=== PATIENT | female | born 1975 ===

== ENCOUNTER 2018-01-13 17:49 | Emergency (ER) | payer MEDICAID ==
[2018-01-13 17:55] VITALS: BP 112/74; PULSE 67; RESP 16; TEMP 98.6; O2SAT 100
--- NOTE | 2018-01-13 18:49 | ED PDOC ---
HPI: Female Pain Time Seen by Provider: 01/13/18 18:07 Chief Complaint (Nursing): Female Genitourinary Chief Complaint (Provider): Bleeding in History Per: Patient History/Exam Limitations: no limitations Onset/Duration Of Symptoms: Days Current Symptoms Are (Timing): Still Present Additional Complaint(s): 42 yo presents at 10 weeks gestation with vaginal bleeding. LMP november 08, 2017. Pt states 3 days ago she had some spotting, ribbon cleaner than menses. PT states it stopped and she had some bleeding today as well. Pt denies pain. Pt states she has been seen by her OB but does not remember then name. PT states she is taking vitamins. PT states previous 2 pregnancies were without complications. Abnormal Vaginal Bleeding: Yes Past Medical History Reviewed: Historical Data, Nursing Documentation, Vital Signs Vital Signs: Last Vital Signs Temp 98.6 F 01/13/18 17:53 Pulse 67 01/13/18 17:53 Resp 16 01/13/18 17:53 BP 112/74 01/13/18 17:53 Pulse Ox 100 01/13/18 17:53 - Medical History PMH: No Chronic Diseases Denies: Chronic Kidney Disease - Surgical History Surgical History: No Surg Hx - Family History Family History: States: No Known Family Hx - Living Arrangements Living Arrangements: With Family - Social History Current smoker - smoking cessation education provided: No - Allergies Allergies/Adverse Reactions: Allergies Allergy/AdvReac Type Severity Reaction Status Date / Time No Known Allergies Allergy Verified 01/13/18 17:53 Review of Systems ROS Statement: Except As Marked, All Systems Reviewed And Found Negative Constitutional: Negative for: Fever, Chills Respiratory: Negative for: Cough Gastrointestinal: Negative for: Nausea, Vomiting, Abdominal Pain Genitourinary Female: Positive for: Vaginal Bleeding Physical Exam - Reviewed Nursing Documentation Reviewed: Yes Vital Signs Reviewed: Yes - Physical Exam Appears: Positive for: Well, Non-toxic, No Acute Distress Head Exam: Positive for: ATRAUMATIC, NORMAL INSPECTION, NORMOCEPHALIC Skin: Positive for: Normal Color, Warm, DRY Eye Exam: Positive for: Normal appearance ENT: Positive for: Normal ENT Inspection Neck: Positive for: Normal, Painless ROM Cardiovascular/Chest: Positive for: Regular Rate, Rhythm Respiratory: Positive for: CNT, Normal Breath Sounds Gastrointestinal/Abdominal: Positive for: Normal Exam, Soft. Negative for: Tenderness Back: Positive for: Normal Inspection Extremity: Positive for: Normal ROM Neurologic/Psych: Positive for: Alert, Oriented - Laboratory Results Result Diagrams: 01/13/18 19:05 01/13/18 19:05 - ECG O2 Sat by Pulse Oximetry: 100 Medical Decision Making Medical Decision Making: Us normal. A (+) Disposition - Clinical Impression Clinical Impression: Vaginal bleeding during - Patient ED Disposition Is Patient to be Admitted: No Counseled Patient/Family Regarding: Diagnosis, Need For Followup - Disposition Referrals: Nadia Snyder MD [Staff Provider] - Disposition: Routine/Home Disposition Time: 20:54 Condition: STABLE Additional Instructions: Please continue f/u with your OB for your care. Instructions: Bleeding With (DC) Forms: [employer] (Niuean)
[2018-01-13 19:26] LABS: BASO # 0.1 K/uL (0.0-0.2); BASO % 0.9 % (0.0-2.0); EOS % 0.5 % (0.0-4.0); HEMOGLOBIN 12.3 g/dL (12.0-16.0); LYMPH # 2.3 K/uL (1.0-4.3); LYMPH % 29.7 % (20.0-40.0); MEAN CELL VOLUME 87.7 fl (81.0-99.0); MEAN CORPUSCULAR HEMOGLOBIN 29.5 pg (27.0-31.0); MEAN CORPUSCULAR HGB CONC 33.6 g/dL (33.0-37.0); MEAN PLATELET VOLUME 10.4 fl (7.2-11.7); MONO # 0.5 K/uL (0.0-0.8); MONO % 6.3 % (0.0-10.0); NEUT # 4.8 K/uL (1.8-7.0); NEUT % 62.6 % (50.0-75.0); RBC 4.18 Mil/uL (3.80-5.20); RED CELL DISTRIBUTION WIDTH 13.3 % (11.5-14.5); WHITE BLOOD COUNT 7.6 K/uL (4.8-10.8)
[2018-01-13 19:33] LABS: ALB/GLOB RATIO 1.3 (1.0-2.1); ALBUMIN 3.7 g/dL (3.5-5.0); ALT/SGPT 43 U/L (9-52); AST/SGOT 28 U/L (14-36); BLOOD UREA NITROGEN 13 mg/dl (7-17); CALCIUM 9.2 mg/dL (8.4-10.2); GFR AFRICAN-AMERICAN > 60; GFR NON-AFRICAN AMERICAN > 60
--- NOTE | 2018-01-14 12:30 | US ---
Date of service: 01/13/2018 PROCEDURE: OB Pelvic Ultrasound HISTORY: Vaginal bleeding in LMP: 11/08/2017. COMPARISON: None available. FINDINGS: UTERUS: Gestational sac: Hemorrhage seen. Heart rate: 171 bpm. age (Ultrasound estimated): 9 weeks 3 days 0 weeks 5 days Gabriel-gestational hemorrhage: None. Date of delivery (Ultrasound estimated) : 08/15/2018 Uterus measures 12.4 x 7.7 x 7.7 cm. Normal in size and appearance. CERVIX: Measures 5.4 cm. Long and closed. No cervical abnormality seen. RIGHT OVARY: Not visualized LEFT OVARY: Not visualized FREE FLUID: None. OTHER FINDINGS: None. IMPRESSION: Single intrauterine gestation with normal cardiac activity whose menstrual age by ultrasound parameters suggest 9 weeks 3 days 0 weeks 5 days. Estimated date of delivery 08/15/2018. . This ultrasound age is concordant with the gestational age per LMP. No gabriel gestational hemorrhage. Uterus and cervix unremarkable . Each ovary nonvisualized Concordant results (preliminary interpretation) provided by [facility].
== END 2018-01-13 21:00 | disposition home or self-care (01) ==
LOC: H.ER 17:49
DX: O20.9 Hemorrhage in early pregnancy, unspecified (principal); Z36.9 Encounter for antenatal screening, unspecified; Z3A.10 10 weeks gestation of pregnancy

== ENCOUNTER 2018-05-31 15:59 | Emergency (ER) | payer OTHER, MEDICAID ==
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
[2018-05-31 22:35] VITALS: BP 99/61; PULSE 79; RESP 17; TEMP 98.6; O2SAT 98
== END 2018-05-31 18:20 | disposition home or self-care (01) ==
LOC: H.EROB2 15:59 → H.ER 16:38 → H.EROB2 16:38
DX: O76 Abnormality in fetal heart rate and rhythm complicating labor and delivery (principal); Z04.3 Encounter for examination and observation following other accident; Z3A.28 28 weeks gestation of pregnancy

== ENCOUNTER 2018-08-21 04:58 | Emergency (ER) | payer MEDICAID ==
[2018-08-21 12:46] VITALS: BP 97/68; PULSE 72; RESP 20; TEMP 98.2; O2SAT 98
== END 2018-08-21 08:25 | disposition home or self-care (01) ==
LOC: H.EROB2 04:58
DX: O26.853 Spotting complicating pregnancy, third trimester (principal); O26.93 Pregnancy related conditions, unspecified, third trimester; R10.2 Pelvic and perineal pain; Z3A.40 40 weeks gestation of pregnancy; O48.0 Post-term pregnancy

== ENCOUNTER 2018-08-21 14:49 | Inpatient (IN) | payer MEDICAID ==
[2018-08-21 17:01] VITALS: BMI 29.2
[2018-08-21] MEDS ORDERED: Morphine 4 MG/ML VIAL IM ONE (17:01)
[2018-08-21] MEDS: Lactated Ringer's 1,000 ML IV ONE ×2 (20:00→21:00)
[2018-08-21] MEDS ORDERED: Lactated Ringer's 1,000 ML IV SCH (20:15)
[2018-08-21 20:25] LABS: BASO % 0.4 % (0.0-2.0); HEMOGLOBIN 11.9 g/dL (12.0-16.0); LYMPH # 0.8 K/uL (1.0-4.3); MEAN CELL VOLUME 85.5 fl (81.0-99.0); MEAN CORPUSCULAR HEMOGLOBIN 27.9 pg (27.0-31.0); MEAN CORPUSCULAR HGB CONC 32.6 g/dL (33.0-37.0); MEAN PLATELET VOLUME 10.5 fl (7.2-11.7); MONO # 0.5 K/uL (0.0-0.8); MONO % 5.5 % (0.0-10.0); NEUT # 7.5 K/uL (1.8-7.0); NEUT % 85.1 % (50.0-75.0); NRBC % 0.1 % (0.0-0.0); PLATELET COUNT 165 K/uL (130-400); RBC 4.26 Mil/uL (3.80-5.20); RED CELL DISTRIBUTION WIDTH 14.6 % (11.5-14.5); WHITE BLOOD COUNT 8.8 K/uL (4.8-10.8)
[2018-08-21] MEDS ORDERED: Bupivacaine HCl 0.5% PF (30 ml) Inj ONE (20:53)
[2018-08-21] MEDS ORDERED: Fentanyl/Bupivacaine HCl 250 ML EPI ONE (21:47)
[2018-08-21 22:00] LABS: ANISOCYTOSIS MODERATE; BANDS 5 % (0-2); HYPOCHROMIC SLIGHT; LYMPHOCYTE 14 % (20-50); MICROCYTOSIS SLIGHT; MONOCYTE 6 % (0-10); NEUTROPHIL 75 % (42-75); PLATELET ESTIMATE NORMAL (NORMAL); POIKILOCYTOSIS SLIGHT; TOTAL CELLS COUNTED 100
[2018-08-21 22:01] LABS: SMUDGE CELLS PRESENT
--- NOTE | 2018-08-21 22:05 | OBHP ---
Datetime: 08/21/2018 21:03 IP Adm Impression: Term, intrauterine ; Ruptured Membranes IP Admit Plan: Admit to unit; Initiate labor protocol Admit Comment, IP Provider: 43-year-old at 40.6 EGA presents with painful contractions every 5 minutes. She denies active vaginal bleeding but noted some mucous bloody discharge which she had over night and presented to ED earlier in the day with (d/c with ED precautions). Denies gush of fluid fro m vagina. Last sexual intercourse was a few months ago. Endorses good movement. Last was C/S due to breech presentation ( ', C/S' ), currently scheduled for repeat section this S unday but if possible would like to attempt . Dr Snyder patient, last seen Friday 3 days prior to presentation. OB: Dr Snyder, last seen Thursday 08/17 PMH: denies Allergies: NKDA Meds: denies OBHx: ', C/S 08 HUM d/t breech Surg: C/S 2007 Family Hx: denies Labs: 3rd Tri WNL, A+ antibody neg, GBS neg, Tdap gvien ROS: all other systems reviewed and negative unless otherwise noted in HPI. PE: uncomfortable during contractions Skin: no rash Ext: no edema CV: RRR, S1, S2 Abd: no tenderness to palpation, U/S bedside cephalic presentation Pelvic: 4/100/0, bloody non-odorous mucous noted on exam, no lesions noted A+P: 43-year-old at 40.6 EGA presents with painful contractions every 5 minutes. -Continuous monitoring: Cat I, FHR 130, no decelerations, no accelerations 15x15 -AROM @ 8pm -Pain management: morphine x1, epidural -CBC, T_S, IVF -Monitor for natural progression of labor Case seen and discussed with Dr Claudio Xavier PGY1 The patient was seen and evaluated with the resident I agree with the note Pelvic Type - PN: Adequate Extremities - PN: Normal Abdomen - PN: Normal Back - PN: Normal Breast - PN: Not Done Lungs - PN: Normal Heart - PN: Normal Thyroid - PN: Not Done Neurologic - PN: Not Done HEENT - PN: Normal General - PN: Normal FHR - Baseline A Provider: 130 Membranes, Provider: Edel EGA AdmitDate IP: 40.6 IP Indication for Induction: Not Applicable IP Chief Complaint: Uterine contractions; Vaginal bleeding NICHD Variability Prov Fetus A: Moderate 6-25bpm NICHD Accel Fetus A IP Provider: 15X15 FHR Category Provider Fetus A: Category I NICHD Decel Fetus A IP Provider: None Dilatation, Provider: 4 Effacement, Provider: 100 Station, Provider: 0 Genitourinary Exam: Not Done DTRs - PN: Not Done Datetime: 08/21/2018 20:48 Amniotic Fluid Color, Provider: Bloody Vital Signs Provider: Reviewed; Within Normal Limits
--- NOTE | 2018-08-21 22:39 | OBPN ---
Datetime: 08/21/2018 21:03 IP Progress Impression: Normal progression of labor IP Procedures: Artificial ROM IP Progress Plan: Continue present management Membranes, Provider: Ruptured FHR - Baseline A Provider: 130 IP Progress Note Comment: Patient doing well requesting pain management good movement patient reports strong uterine contractions heart rate reactive toco uterine contractions every 2-3 minutes Sterile vaginal exam 5 cm 100% effaced bulging membranes Artificial rupture membranes clear fluid Adequate pelvis Estimated weight 8-8/2 pounds Anticipate normal vaginal delivery NICHD Accel Fetus A IP Provider: 15X15 FHR Category Provider Fetus A: Category I NICHD Variability Prov Fetus A: Moderate 6-25bpm Dilatation, Provider: 4 Effacement, Provider: 100 Station, Provider: 0 NICHD Decel Fetus A IP Provider: None Datetime: 08/21/2018 20:48 Amniotic Fluid Color, Provider: Bloody Vital Signs Provider: Reviewed; Within Normal Limits
[2018-08-21] MEDS ORDERED: Oxytocin 30 UNIT 30 UNITS/500 ML BAG IV ONE (23:31)
[2018-08-21] MEDS ORDERED: Lidocaine Hydrochloride 5 ML INJ ONE (23:31)
[2018-08-22] MEDS ORDERED: Benzocaine/Menthol SPRAY TOP PRN ×2 (02:35→04:36)
[2018-08-22] MEDS ORDERED: OXYTOCIN/0.9 % NS 20 UNIT/1,000 ML BAG IV ONE (02:38)
[2018-08-22] MEDS ORDERED: Oxytocin 30 UNIT 30 UNITS/500 ML BAG IV ONE (02:38)
[2018-08-22] MEDS ORDERED: AMPicillin 2 GM in Sodium Chloride 0.9% 100 ML IVPB SCH (04:00)
--- NOTE | 2018-08-22 08:16 | OBDS ---
DELIVERY PERSONNEL Delivery Doctor: Zuly Snyder MD /RIVERA ORDOÑEZ, OB FELLOW Scrub Nurse: Nicki Pierson Van Helper: Pauline Rain RN Resident: Keon CARO MATERNAL INFORMATION Delivery Anesthesia: Local; Epidural Medications in Delivery: PITOCIN Estimated Blood Loss (ml): 100 Placenta Cultured: No Maternal Complications: None Other Maternal Complications: NONE RN Comments: SKIN TO SKIN BONDING DONE MOM BREAST FED THE , BABY LATCHED WELL , GOOD BONDIN G NOTED Provider Comments: 43 year old admitted for TOLAC. Progressed to successful of live male i nfact, position LEX over intact perineum with epidural anesthesia. placed on maternal abdomen and delayed cord clamping was performed, Apgars 9 _ 9. No meconium or nuchal cord. Spontaneous delive ry of placenta with 3-vessel cord. See laceration repair note. QBL 100cc. Mom and baby are in stable condition and will be recovered in post . Rivera Ordoñez MD OB Fellow I was present fro the delivery I agree with the note LABOR SUMMARY EDC: 08/15/2018 00:00 No. Babies in Womb: 1 Attempted: Yes Labor Anesthesia: Epidural LABOR INFORMATION Reason for Induction: Not Applicable Onset of Labor: 08/21/2018 19:30 Complete Dilatation: 08/21/2018 23:45 Oxytocin: N/A Group B Beta Strep: Negative Steroids Given: None Reason Steroids Not Administered: Not Applicable MEMBRANES Membranes Rupture Method: Artificial Rupture of Membranes: 08/21/2018 19:30 Length of Rupture (hrs): 5.17 Amniotic Fluid Color: Bloody Amniotic Fluid Amount: Small Amniotic Fluid Odor: Normal STAGES OF LABOR Stage 1 hrs: 4 Stage 1 min: 15 Stage 2 hrs: 0 Stage 2 min: 55 Stage 3 hrs: 0 Stage 3 min: 8 Total Time in Labor hrs: 5 Total Time in Labor min: 18 VAGINAL DELIVERY Episiotomy: None Laceration Extension: First Degree Laceration Type: Perineal Laceration Repair: Yes Laceration Repair Note: The laceration was repaired with a 2-0 Vicryl in the usual fashion. Initial Vag Sponge Count: 5 Final Vag Sponge Count: 5 Initial Vag Sharps Count: 2 Final Vag Sharps Count: 2 Sponge Count Correct: Yes Sharps Count Correct: Yes Count Comment: COUNT CORRECT BABY A INFORMATION Infant Delivery Date/Time: 08/22/2018 00:40 Method of Delivery: Vaginal Born in Route : No : Successful Forceps: N/A Vacuum Extraction: N/A Shoulder Dystocia : No SHOULDER DYSTOCIA BABY A Infant Delivery Date/Time: 08/22/2018 00:40 PRESENTATION/POSITION BABY A Presentation: Cephalic Cephalic Presentation: Vertex Vertex Position: Left Occipital Anterior Breech Presentation: N/A PLACENTA INFORMATION BABY A Placenta Delivery Time : 08/22/2018 00:48 Placenta Method of Delivery: Spontaneous Placenta Status: Delivered SCORES BABY A Heart Rate 1 min: >100 bpm Resp Effort 1 min: Good Cry Reflex Irritability 1 min: Cough or Sneeze or Pulls Away Muscle Tone 1 min: Active Motion Color 1 min: Body [place], Extremities Blue SCORE 1 MIN: 9 Heart Rate 5 min: >100 bpm Resp Effort 5 min: Good Cry Reflex Irritability 5 min: Cough or Sneeze or Pulls Away Muscle Tone 5 min: Active Motion Color 5 min: Body [place], Extremities Blue SCORE 5 MIN: 9 INFANT INFORMATION BABY A Gestational Age at Delivery: 41.0 Gestational Status: Term Infant Outcome : Liveborn Infant Condition : Stable Infant Sex: Male IDENTIFICATION/MEDS BABY A ID Band Location: Left Leg; Left Arm Vitamin K Given : Aquamephyton 1 mg IM Erythromycin Given: Given Both Eyes WEIGHT/LENGTH BABY A Birthweight (gms): 3680 Infant Weight (lb): 8 Infant Weight (oz): 2 CORD INFORMATION BABY A No. Cord Vessels: 3 Nuchal Cord : N/A Cord Blood Taken: Yes Infant Suction: Mouth; Nose ASSESSMENT BABY A Complications: None Physical Findings at Delivery: Within Normal Limits Infant Respirations: Appears Normal Car Restorer/ALS Called : No Infant Care By: PAULINE RAIN RN / KHURRAM JUAREZ RN Transferred To: Remains with Mother RESUSCITATION BABY A Resuscitation Effort: Tactile Stimulation
--- NOTE | 2018-08-22 08:18 | OBPPN ---
Datetime: 08/22/2018 08:16 PP Pain Prov: Within normal limits PP Nausea Prov: Denies PP Flatus Prov: Yes PP Breasts Prov: Not Done PP Heart Prov: Normal PP Lungs Prov: Normal PP Abdomen/Uterus Prov: Normal PP Lochia Prov: Not Done PP Vulva/Perineum Prov: Not Done PP CVA Tenderness Prov: Normal PP Extremities Prov: Normal PP Impression Prov: Normal progression PP Plan Prov: Continue present management PP Progress Note Prov: Patient doing well reports minimal lochia pain well controlled ambulating gail erating diet voiding without difficulty Vital signs stable afebrile Uterus firm below the umbilicus Extremities no Homans day #1 Ambulate, regular diet, analgesia as needed, anticipate discharge in a.m. Vital Signs Provider PP: Reviewed
--- NOTE | 2018-08-22 08:32 | OBADHP ---
Datetime: 08/22/2018 00:26 Presentation-Admit: Vertex FHR - Baseline A Provider: 170 Membranes, Provider: Ruptured Gestation - Est Wks by US: 41.0 Vital Signs Provider: Reviewed; Within Normal Limits NICHD Variability Prov Fetus A: Minimal - Undetectable to <5bpm Datetime: 08/21/2018 21:03 Admit Comment, IP Provider: 43-year-old at 40.6 EGA presents with painful contractions every 5 minutes. She denies active vaginal bleeding but noted some mucous bloody discharge which she had over night and presented to ED earlier in the day with (d/c with ED precautions). Denies gush of fluid fro m vagina. Last sexual intercourse was a few months ago. Endorses good movement. Last was C/S due to breech presentation ( , C/S), currently scheduled for repeat section this S unday but if possible would like to attempt . Dr Snyder patient, last seen Friday 3 days prior to presentation. OB: Dr Snyder, last seen Thursday 08/17 PMH: denies Allergies: NKDA Meds: denies OBHx: , C/S HUM d/t breech Surg: C/S 2007 Family Hx: denies Labs: 3rd Tri WNL, A+ antibody neg, GBS neg, Tdap gvien ROS: all other systems reviewed and negative unless otherwise noted in HPI. PE: uncomfortable during contractions Skin: no rash Ext: no edema CV: RRR, S1, S2 Abd: no tenderness to palpation, U/S bedside cephalic presentation Pelvic: 4/100/0, bloody non-odorous mucous noted on exam, no lesions noted A+P: 43-year-old at 40.6 EGA presents with painful contractions every 5 minutes. -Continuous monitoring: Cat I, FHR 130, no decelerations, no accelerations 15x15 -AROM @ 8pm -Pain management: morphine x1, epidural -CBC, T_S, IVF -Monitor for natural progression of labor Case seen and discussed with Dr Claudio Xavier PGY1 The patient was seen and evaluated with the resident I agree with the note Pelvic Type - PN: Adequate Extremities - PN: Normal Abdomen - PN: Normal Back - PN: Normal Breast - PN: Not Done Lungs - PN: Normal Heart - PN: Normal Thyroid - PN: Not Done Neurologic - PN: Not Done HEENT - PN: Normal General - PN: Normal IP Chief Complaint: Uterine contractions; Vaginal bleeding NICHD Accel Fetus A IP Provider: 15X15 FHR Category Provider Fetus A: Category I NICHD Decel Fetus A IP Provider: None Dilatation, Provider: 4 Effacement, Provider: 100 Station, Provider: 0 Genitourinary Exam: Not Done DTRs - PN: Not Done EGA AdmitDate IP: 40.6 IP Adm Impression: Term, intrauterine ; Ruptured Membranes IP Admit Plan: Admit to unit; Initiate labor protocol Datetime: 08/21/2018 20:48 Amniotic Fluid Color, Provider: Bloody
[2018-08-22 15:44] LABS: BASO % 0.4 % (0.0-2.0); EOS % 0.1 % (0.0-4.0); HEMOGLOBIN 10.5 g/dL (12.0-16.0); LYMPH # 0.3 K/uL (1.0-4.3); LYMPH % 4.7 % (20.0-40.0); MEAN CELL VOLUME 85.3 fl (81.0-99.0); MEAN CORPUSCULAR HEMOGLOBIN 28.6 pg (27.0-31.0); MEAN CORPUSCULAR HGB CONC 33.6 g/dL (33.0-37.0); MEAN PLATELET VOLUME 10.3 fl (7.2-11.7); MONO # 0.6 K/uL (0.0-0.8); NEUT # 6.3 K/uL (1.8-7.0); NEUT % 86.8 % (50.0-75.0); RBC 3.66 Mil/uL (3.80-5.20); WHITE BLOOD COUNT 7.2 K/uL (4.8-10.8)
[2018-08-23] MEDS: Lansinoh for Breast Feeding Mothers TP PRN (21:15)
--- NOTE | 2018-08-24 07:40 | OBPPN ---
Datetime: 08/24/2018 07:33 PP Pain Prov: Within normal limits PP Nausea Prov: Denies PP Abdomen/Uterus Prov: Normal PP Lochia Prov: Normal PP Extremities Prov: Normal PP Progress Note Prov: PPD 2 s/p , doing well, breast and bottle feeding Rx's motrin and Slow fe given Discharge home today Vital Signs Provider PP: Reviewed; Within Normal Limits
[2018-08-24] MEDS: Lansinoh for Breast Feeding Mothers TP PRN (09:50)
[2018-08-24 19:19] VITALS: BP 107/69; PULSE 57; RESP 20; TEMP 98.2; O2SAT 99
== END 2018-08-24 15:10 | disposition home or self-care (01) | DRG 373 ==
LOC: H.EROB2 14:49 → H.L&D 20:16 → H.OB/GYN 08-22 04:00
PROVIDERS: ADMIT Obstetrics & Gynecology Gynecology; ATTEND Obstetrics & Gynecology Gynecology
PROC: 4A1HXCZ Monitoring of Products of Conception, Cardiac Rate, External Approach (ICD-10-PCS; 2018-08-21)
PROC: 10E0XZZ Delivery of Products of Conception, External Approach (ICD-10-PCS; principal; 2018-08-22)
PROC: 0HQ9XZZ Repair Perineum Skin, External Approach (ICD-10-PCS; 2018-08-22)
DX: O34.219 Maternal care for unspecified type scar from previous cesarean delivery (principal); N85.8 Other specified noninflammatory disorders of uterus; O70.0 First degree perineal laceration during delivery; Z37.0 Single live birth; Z3A.41 41 weeks gestation of pregnancy; O32.1XX0 Maternal care for breech presentation, not applicable or unspecified